=== PATIENT | female | born 1990 | race Caucasian/White ===

== ENCOUNTER 2018-06-24 13:53 | Emergency (ER) | payer MEDICAID ==
[~2018-06-24] VITALS: Ht 154.9 cm; Wt 61.2 kg
[2018-06-24 14:01] VITALS: BP_SYST 130
[2018-06-24 15:25] VITALS: BP_SYST 130
== END 2018-06-24 15:23 | disposition home or self-care (01) ==
LOC: SED 13:53
DX: B34.9 Viral infection, unspecified (principal); R03.0 Elevated blood-pressure reading, without diagnosis of hypertension
CPT/HCPCS: 70490; 81025; 99284

== ENCOUNTER 2020-11-23 16:02 | Emergency (ER) | payer MEDICAID ==
[~2020-11-23] VITALS: Ht 144.8 cm; Wt 65.8 kg
[2020-11-23 16:07] VITALS: BP_SYST 124
[2020-11-23] MEDS ORDERED: LIDOCAINE VISCOUS 2%, 15 ML UDC MM ONE (16:45)
[2020-11-23] MEDS ORDERED: LIDOCAINE VISCOUS 2%, 15 ML UDC ONE (16:46)
[2020-11-23 17:13] VITALS: BP_SYST 104
== END 2020-11-23 17:16 | disposition home or self-care (01) ==
LOC: SED 16:02
DX: R07.0 Pain in throat (principal); R13.10 Dysphagia, unspecified
CPT/HCPCS: 99283; J2001

== ENCOUNTER 2021-02-08 20:38 | Emergency (ER) | payer MEDICAID ==
[~2021-02-08] VITALS: Ht 152.4 cm; Wt 64.4 kg
[2021-02-08 20:44] VITALS: BP_SYST 141
[2021-02-08 21:17] LABS: BASOPHILS # (AUTO) 0.1 K/uL (0.0-0.2); BASOPHILS % (AUTO) 0.8 % (0.0-2.0); EOSINOPHILS # (AUTO) 0.1 K/uL (0.0-0.4); EOSINOPHILS % (AUTO) 1.4 % (0.0-4.0); HEMATOCRIT 36.9 % (36-48); HEMOGLOBIN 12.1 g/dL (12.0-16.0); LYMPHOCYTES # (AUTO) 2.9 K/uL (1.0-5.5); LYMPHOCYTES % (AUTO) 39.3 % (20.5-51.5); MEAN CORPUSCULAR HEMOGLOBIN 25 pg (27-31); MEAN CORPUSCULAR HGB CONC 33 % (32-36); MEAN CORPUSCULAR VOLUME 76 fL (79.0-98.0); MONOCYTES # (AUTO) 0.6 K/uL (0.0-1.0); NEUTROPHILS # (AUTO) 3.7 K/uL (1.8-7.7); NEUTROPHILS % (AUTO) 50.5 % (40.0-70.0); PLATELET COUNT (AUTO) 173 K/uL (130-430); RED BLOOD CELL COUNT(AUTO) 4.86 MIL/uL (4.2-6.2); WHITE BLOOD COUNT (AUTO) 7.3 K/uL (4.8-10.8)
[2021-02-08 21:38] LABS: CALCIUM 8.7 mg/dL (8.4-11.0); CREATININE 0.88 mg/dL (0.55-1.30); POTASSIUM 3.5 mmol/L (3.5-5.1)
[2021-02-08 21:45] LABS: ALBUMIN 3.4 g/dL (3.4-4.8); TOTAL BILIRUBIN 0.2 mg/dL (0.0-1.0)
[2021-02-08 22:15] LABS: INR 0.9 (0.8-1.2); PROTHROMBIN TIME 9.7 SECS (9.5-12.5)
[2021-02-08 22:31] VITALS: BP_SYST 131
== END 2021-02-08 22:31 | disposition home or self-care (01) ==
LOC: SED 20:38
DX: R20.2 Paresthesia of skin (principal)
CPT/HCPCS: 36415; 70450-TC; 71045; 76376; 80053; 81025; 84484; 84703; 85025; 85610-TC; 85730-TC; 93005; 99285